=== PATIENT | female | born 1995 | race Caucasian/White ===

== ENCOUNTER 2017-09-02 06:38 | Inpatient (IN) | payer BC ==
[2017-09-02] MEDS ORDERED: PENICILLIN 5 MU in NA CHLORIDE 0.9% 100 ML IV ONE (06:48)
[2017-09-02] MEDS ORDERED: BUTORPHANOL 1 MG/ML INJ IV PRN (06:48)
[2017-09-02] MEDS ORDERED: PROMETHAZINE 25 MG/ML VIAL IV PRN (06:48)
[2017-09-02] MEDS ORDERED: Ringers Lactate 1,000 ML IV PRN ×2 (06:48→07:19)
[2017-09-02] MEDS ORDERED: OXYTOCIN/LR 20 UNIT/1,000 ML BAG IV SCH ×3 (07:00→17:00)
[2017-09-02] MEDS ORDERED: Ringers Lactate 1,000 ML IV SCH ×2 (07:00→08:00)
[2017-09-02 07:39] LABS: RPR Titer ND
[2017-09-02] MEDS ORDERED: PENICILLIN G POT 5 MU/100 ML VIAL IV SCH (07:45)
[2017-09-02 07:49] LABS: Absolute Lymphocytes (CBC) 2.5 K/uL (0.7-4.9); Absolute Neutrophil 10.5 K/uL (1.8-8.0); Basophils % 0.5 % (0-1.3); Eosinophils % 0.6 % (0-4.4); Hematocrit 34.2 % (36.0-45.0); Lymphocytes % 17.8 % (15.3-44.8); MCH 28.3 pg (27.0-35.0); MCV 84.9 fL (80-100); MPV 8.9 fL (7.6-11.3); Monocytes % 7.2 % (3.3-12.3); RBC Red Blood Cell Count 4.03 M/uL (3.86-4.86)
[2017-09-02 07:52] LABS: Urine Appearance CLOUDY; Urine Bilirubin NEGATIVE (NEG); Urine Blood NEGATIVE (NEG); Urine Color YELLOW; Urine Glucose NEGATIVE (NEG); Urine Protein 1+ (NEG); Urine Specific Gravity 1.025 (1.005-1.030); Urine Urobilinogen 0.2 mg/dL (0.2-1.0); Urine pH 6.5 (5.0-7.0)
[2017-09-02 08:03] LABS: Urine Microscopic Reflex ORDER UMIC
[2017-09-02 08:13] LABS: Urine Bacteria >50 /HPF (<20); Urine Culture Reflex Order NOT NEEDED; Urine Mucus LIGHT /HPF (NONE SEEN)
[2017-09-02 08:17] VITALS: BMI 31.7
[2017-09-02] MEDS ORDERED: FENTANYL CITR 100 MCG/2 ML IV ONE (08:38)
[2017-09-02] MEDS ORDERED: ROPIVACAINE HCL 100 ML IV PRN (08:42)
[2017-09-02] MEDS ORDERED: ROPIVACAINE HCL 0.2% 20ML AMP SQ SCH (09:00)
[2017-09-02] MEDS ORDERED: PENICILLIN 2.5 MU in NA CHLORIDE 0.9% 100 ML IV SCH ×2 (09:00→11:00)
[2017-09-02] MEDS ORDERED: DIPHENHYDRAMINE 50 MG/ML VIAL IV ONE (11:13)
[2017-09-02] MEDS ORDERED: DIPHENHYDRAMINE 50 MG/ML VIAL ONE (11:23)
[2017-09-02] MEDS ORDERED: METHYLERGONOVINE 0.2MG/ML AMP IM ONE (13:30)
[2017-09-02] MEDS ORDERED: CARBOPROST TROME 250 MCG/ML IM ONE (13:30)
[2017-09-02] MEDS ORDERED: FENTANYL/BUPIVACAINE/NS/PF 200 MCG/100 ML BAG EP PRN (14:20)
[2017-09-02] MEDS ORDERED: FENTANYL/BUPIVACAINE/NS/PF 200 MCG/100 ML BAG EP ONE (14:24)
[2017-09-02] MEDS ORDERED: ROPIVACAINE HCL 0 ML ONE (14:29)
[2017-09-02] MEDS ORDERED: ROPIVACAINE HCL 20 ML ONE (14:30)
[2017-09-02] MEDS ORDERED: BUPIVACAINE 0.5% PF 10 ML VIAL ONE (14:44)
[2017-09-02] MEDS ORDERED: LIDOCAINE 1% 20 ML MDV ONE (16:20)
[2017-09-02] MEDS ORDERED: METHYLERGONOVINE 0.2 MG TAB PO PRN (16:42)
[2017-09-02] MEDS ORDERED: ONDANSETRON 4 MG (ODT) TAB PO PRN (16:42)
[2017-09-02] MEDS ORDERED: CARBOPROST TROME 250 MCG/ML IM PRN (16:42)
[2017-09-02] MEDS ORDERED: METHYLERGONOVINE 0.2MG/ML AMP IM PRN (16:42)
--- NOTE | 2017-09-02 16:46 | P.BOP ---
Preoperative diagnosis: 39+ wk Postoperative diagnosis: Same, delivered Primary procedure: SCVD viable male infant Secondary procedure: Repair of perineal lacerations. Estimated blood loss: Less than 400ml Anesthesia: epidural Complications: Other (CANX1, loose) Transferred to: Other (273) Condition: Good
[2017-09-02] MEDS: Oxycodone HCl/Acetaminophen 1 TAB TAB PO PRN (19:30)
[2017-09-02 19:53] LABS: RPR (Rapid Plasma Reagin) NON-REACT (NON-REACT)
[2017-09-02] MEDS: IBUPROFEN 200 MG TAB PO PRN (20:10)
[2017-09-02] MEDS ORDERED: BUTORPHANOL 1 MG/ML INJ IV ONE (21:50)
[2017-09-02] MEDS ORDERED: BUTORPHANOL 1 MG/ML INJ ONE (22:03)
[2017-09-03] MEDS ORDERED: IBUPROFEN 400 MG TAB ONE (05:21)
[2017-09-03] MEDS: IBUPROFEN 200 MG TAB PO PRN ×2 (05:46→14:34)
[2017-09-03] MEDS: Oxycodone HCl/Acetaminophen 1 TAB TAB PO PRN (07:22)
--- NOTE | 2017-09-03 12:00 | PREOPHP ---
Date of Admission: 09/02/2017 History Of Present Illness: Ms. Villalobos is a 22-year-old female, 1, para 0, at 39 weeks and 1 days, who will be admitted for an elective induction of labor secondary to term with favorable cervix. She has been followed by me with issues of questionable dates and positive Chlamydia during this , positive beta strep. Past Med Hx & Family Hx, please see record ROS: She denies recent cough, cold, fever, chills, or UTI symptoms. has been active. She denies breast lumps, UTI sxs or vaginal bleeding, or evidence of HSV infection. Physical Examination: Lungs: Clear. Cardiac: Regular rate and rhythm without murmurs. Breasts: Not examined. Abdomen: Shows 37 cm fundal height. Pelvic: Cervix 1+ 2 cm, 70% effaced, vertex and -1 to -2 station. Extremities: No cyanosis, clubbing, edema. Plan: The patient will be admitted, will be started on Pitocin induction of labor and given prophylaxis for beta strep. Rupture membranes performed. She signed operative permit in my presence and appears to understand the risks and benefits. SABRINA/RICHMOND Voice ID: [id number]
[2017-09-03 16:21] VITALS: BP 143/86; TEMP 97.6
--- NOTE | 2017-09-03 18:39 | OP ---
Surgeon: Russell Merrill MD Ms. Villalobos is a 22-year-old, female, 1, para 0, at 39+ weeks' gestation, admitted fo r induction of labor secondary to term with favorable cervix. She was noted to be 1+ 2 cm on admission after beginning penicillin prophylaxis for beta strep carriage. Rupture membranes perfo rmed and Pitocin induction of labor was begun. She had a first stage of labor of approximately 6 megan rs, second stage of labor of approximately 90 minutes. She was delivered of an 8 pounds 1 ounce male , 9 and 9. Loose cord around the neck x1 was noted. Infant was delivered after delayed cord clamping. This was clamped cut and the infant placed on mother's abdomen. Cord blood was obta ined. Placenta was spontaneously expelled. Ms. Villalobos had to first periurethral lacerations and 1 se cond-degree left introital laceration. These were repaired in usual fashion with 3-0 Vicryl suture. She had an epidural catheter placed with intermittent success. Estimated total blood loss was about 350 cc. SABRINA/RICHMOND Voice ID: [id number] Report ID: [id number]
[2017-09-04 03:06] LABS: HBsAG Nonreactive (Nonreactive)
--- NOTE | 2017-09-04 04:37 | DS ---
Date of Discharge: 09/03/2017 Final Hospital Discharge Diagnosis: Term , delivered. Complications: None. Procedures: Artificial rupture of membranes, Pitocin induction of labor, placement of epidural cierra ter, spontaneous controlled vaginal delivery of viable male , repair of perineal lacerations. Hospital Course: The patient is a 22-year-old female, 1, para 0 at 39+ weeks' gest ation, who underwent induction of labor. She delivered 8-pound 1-ounce male , Apgars 9 and 9 w ith epidural anesthesia. She was dismissed on the first day, ambulatory on a select diet with routine post vaginal delivery activity restrictions, to be seen back in my office in 2 weeks and 6 weeks. Lab work included an admission hemoglobin and hematocrit of 11.4 and 34.2, dismissal of 30 .2. She is Rh positive blood type, rubella immune. She was dismissed with prescription for Tylenol No. 3, #10 for pain relief with the usual post vaginal delivery activity restrictions. SABRINA/RICHMOND Voice ID: [id number] Report ID: [id number]
== END 2017-09-03 18:35 | disposition home or self-care (01) | DRG 775 ==
LOC: 2ND-WC 06:38
PROVIDERS: ADMIT Specialist; ATTEND Specialist
PROC: 10E0XZZ Delivery of Products of Conception, External Approach (ICD-10-PCS; principal; 2017-09-02)
PROC: 10907ZC Drainage of Amniotic Fluid, Therapeutic from Products of Conception, Via Natural or Artificial Opening (ICD-10-PCS; 2017-09-02)
PROC: 3E033VJ Introduction of Other Hormone into Peripheral Vein, Percutaneous Approach (ICD-10-PCS; 2017-09-02)
PROC: 0HQ9XZZ Repair Perineum Skin, External Approach (ICD-10-PCS; 2017-09-02)
DX: O69.81X0 Labor and delivery complicated by cord around neck, without compression, not applicable or unspecified (principal); O99.824 Streptococcus B carrier state complicating childbirth; O71.82 Other specified trauma to perineum and vulva; Z3A.39 39 weeks gestation of pregnancy; Z37.0 Single live birth
CPT/HCPCS: 36415; 81003; 81015; 85014; 85025; 86592; 86901; 87340; J0595; J2210; J2590; J2795; J3010